=== PATIENT | male | born 1960 | race Caucasian/White ===

== ENCOUNTER → 2017-08-21 | Outpatient (CLI) | payer SELFPAY ==
[~2017-08-21] MED LIST: AMLO5 PO; ASPI81CH PO; ATEN25 PO; Aciphex20 MG PO; Imitrex100 MG PO; LISI20; Norco 5-325 Ta1 EACH PO; TOPI50 PO
[2017-08-21 14:08] LABS: BASOPHILS ABSOLUTE AUTO 0.06 K/mm3 (0.00-0.23); BASOPHILS PERCENT AUTO 1 % (0-2); EOSINOPHILS ABSOLUTE AUTO 0.33 K/mm3 (0.00-0.68); EOSINOPHILS PERCENT AUTO 3 % (0-6); Hematocrit 41.9 % (37.0-53.0); Hemoglobin 14.2 g/dL (13.5-17.5); IMMATURE GRAN ABSOLUTE AUTO 0.03 K/mm3 (0.00-0.10); IMMATURE GRAN PERCENT AUTO 0 % (0-1); LYMPHOCYTES ABSOLUTE AUTO 3.27 K/mm3 (0.84-5.20); LYMPHOCYTES PERCENT AUTO 33 % (21-46); MONOCYTES ABSOLUTE AUTO 0.68 K/mm3 (0.16-1.47); MONOCYTES PERCENT AUTO 7 % (4-13); Mean Corpuscular HGB 31.6 pg (26.0-34.0); Mean Corpuscular HGB Conc 33.9 g/dL (31.5-36.5); Mean Corpuscular Volume 93 fL (80-100); Mean Platelet Volume 12.3 fL (9.1-12.4); NEUTROPHILS ABSOLUTE AUTO 5.64 K/mm3 (1.96-9.15); NEUTROPHILS PERCENT AUTO 56 % (41-73); Platelet Count 222 K/mm3 (150-400); RDW Coefficient Variation 13.2 % (11.7-14.2); RDW Standard Deviation 45.9 fL (35.1-46.3); White Blood Cell Count 10.01 K/mm3 (4.00-11.30)
[2017-08-21 14:23] LABS: Alanine Aminotransfer (ALT/SGP 51 U/L (12-78); Albumin, Blood 3.9 g/dL (3.4-5.0); Alk Phos 115 U/L (40-126); Anion Gap 12 mmol/L (6-16); Aspartate Aminotrans (AST/SGOT 34 U/L (12-37); Bilirubin, Total 0.9 mg/dL (0.1-1.0); Blood Urea Nitrogen 16 mg/dL (8-24); CO2, Blood 25 mmol/L (21-32); Calcium, Blood 8.9 mg/dL (8.5-10.1); Chloride, Blood 103 mmol/L (98-108); Creatinine, Blood 0.89 mg/dL (0.60-1.20); Globulin, Blood 3.8 g/dL (2.2-4.0); Glomerular Filtration Rate >60 (60-); Glucose, Blood 117 mg/dL (70-99); Potassium, Blood 3.5 mmol/L (3.5-5.5); Sodium, Blood 140 mmol/L (136-145); Total Protein, Blood 7.7 g/dL (6.4-8.2); Troponin I <0.017 ng/mL (0.000-0.040)
== END ==
LOC: LAB EV 14:00 → LAB SHORT 14:00
PROVIDERS: Physician Assistant
DX: R07.9 Chest pain, unspecified (principal)
CPT/HCPCS: 80053; 83690; 84484; 85025

== ENCOUNTER 2018-01-06 15:21 | Emergency (ER) | payer OTHER ==
[~2018-01-06] VITALS: Ht 172.7 cm; Wt 79.4 kg
[~2018-01-06 15:21] MED LIST changes: -LISI20; +LISI20 PO
[2018-01-06] MEDS ORDERED: METO25ER PO (15:34)
[2018-01-06] MEDS ORDERED: Multivitamin1 EAC2 PO (15:35)
[2018-01-06] MEDS ORDERED: VITAMIN D32000 UNIT PO (15:36)
== END 2018-01-06 17:22 | disposition home or self-care (01) ==
LOC: ER 15:21
DX: S40.852A Superficial foreign body of left upper arm, initial encounter (principal); I10 Essential (primary) hypertension; K21.9 Gastro-esophageal reflux disease without esophagitis; F17.210 Nicotine dependence, cigarettes, uncomplicated; Z79.899 Other long term (current) drug therapy; Z79.82 Long term (current) use of aspirin
CPT/HCPCS: 76882; 99283-25

== ENCOUNTER 2018-05-01 07:14 | Day surgery (SDC) | payer OTHER ==
[~2018-05-01] VITALS: Ht 172.7 cm; Wt 83.3 kg
[~2018-05-01 07:14] MED LIST changes: +ASCO500; +Aspirin EC81 MG PO; +LOPE2C PO; +METO25ER PO; +Multivitamin1 EAC2 PO; +VARE1 PO; +VITAMIN D32000 UNIT PO; +ZESTRIL40 MG PO
== END 2018-05-01 09:32 | disposition home or self-care (01) ==
LOC: ORSCSDS 07:14
PROVIDERS: Internal Medicine Gastroenterology
PROC: 0DBE8ZX Excision of Large Intestine, Via Natural or Artificial Opening Endoscopic, Diagnostic (ICD-10-PCS; principal; 2018-05-01 08:30)
PROC: 0DB68ZX Excision of Stomach, Via Natural or Artificial Opening Endoscopic, Diagnostic (ICD-10-PCS; principal; 2018-05-01 08:30)
PROC: 0DBB8ZX Excision of Ileum, Via Natural or Artificial Opening Endoscopic, Diagnostic (ICD-10-PCS; principal; 2018-05-01 08:30)
PROC: 0DBL8ZX Excision of Transverse Colon, Via Natural or Artificial Opening Endoscopic, Diagnostic (ICD-10-PCS; principal; 2018-05-01 08:30)
PROC: 0DB98ZX Excision of Duodenum, Via Natural or Artificial Opening Endoscopic, Diagnostic (ICD-10-PCS; principal; 2018-05-01 08:30)
DX: K21.0 Gastro-esophageal reflux disease with esophagitis (principal); R13.10 Dysphagia, unspecified; D12.3 Benign neoplasm of transverse colon; K64.1 Second degree hemorrhoids; K57.30 Diverticulosis of large intestine without perforation or abscess without bleeding; R19.7 Diarrhea, unspecified; Z86.010 Personal history of colon polyps; I10 Essential (primary) hypertension; F17.210 Nicotine dependence, cigarettes, uncomplicated; Z79.82 Long term (current) use of aspirin; Z79.899 Other long term (current) drug therapy
CPT/HCPCS: 88305; 88342; J0330; J1980; J2405; J7120

== ENCOUNTER 2019-08-27 12:25 | Emergency (ER) | payer OTHER ==
[~2019-08-27] VITALS: Ht 172.7 cm; Wt 90.7 kg
[2019-08-27 13:26] LABS: BASOPHILS PERCENT AUTO 1 % (0-2); EOSINOPHILS ABSOLUTE AUTO 0.33 K/mm3 (0.00-0.68); EOSINOPHILS PERCENT AUTO 3 % (0-6); Hematocrit 44.4 % (37.0-53.0); Hemoglobin 14.6 g/dL (13.5-17.5); IMMATURE GRAN ABSOLUTE AUTO 0.13 K/mm3 (0.00-0.10); IMMATURE GRAN PERCENT AUTO 1 % (0-1); LYMPHOCYTES PERCENT AUTO 26 % (21-46); MONOCYTES ABSOLUTE AUTO 0.78 K/mm3 (0.16-1.47); MONOCYTES PERCENT AUTO 7 % (4-13); Mean Corpuscular HGB 30.4 pg (26.0-34.0); Mean Corpuscular HGB Conc 32.9 g/dL (31.5-36.5); Mean Corpuscular Volume 92 fL (80-100); Mean Platelet Volume 12.7 fL (9.1-12.4); NEUTROPHILS ABSOLUTE AUTO 6.63 K/mm3 (1.96-9.15); NEUTROPHILS PERCENT AUTO 62 % (41-73); Platelet Count 199 K/mm3 (150-400); RDW Coefficient Variation 13.7 % (11.7-14.2); RDW Standard Deviation 47.2 fL (35.1-46.3); Red Blood Cell Count 4.81 M/mm3 (4.30-5.90); White Blood Cell Count 10.77 K/mm3 (4.00-11.30)
[2019-08-27] MEDS ORDERED: METF500 PO (13:43)
[2019-08-27] MEDS ORDERED: DULO60 PO (13:43)
[2019-08-27] MEDS ORDERED: OMEP20ER PO (13:43)
[2019-08-27] MEDS ORDERED: BENZ100A PO (13:44)
[2019-08-27] MEDS ORDERED: Crestor20 MG PO (13:44)
[2019-08-27] MEDS ORDERED: TIZA4 PO (13:44)
[2019-08-27] MEDS ORDERED: FLUT.05NI (13:45)
[2019-08-27 13:52] LABS: Alanine Aminotransfer (ALT/SGP 33 U/L (12-78); Albumin, Blood 3.6 g/dL (3.4-5.0); Albumin/Globulin Ratio 0.9 (0.8-1.8); Alk Phos 108 U/L (50-136); Anion Gap 7 mmol/L (6-16); Aspartate Aminotrans (AST/SGOT 21 U/L (12-37); Bilirubin, Total 0.6 mg/dL (0.1-1.0); Blood Urea Nitrogen 13 mg/dL (8-24); Bun/Creatinine Ratio 15.1 (12.0-20.0); CO2, Blood 25 mmol/L (21-32); Calcium, Blood 8.3 mg/dL (8.5-10.1); Chloride, Blood 110 mmol/L (98-108); Creatinine, Blood 0.86 mg/dL (0.60-1.20); Globulin, Blood 3.8 g/dL (2.2-4.0); Glomerular Filtration Rate >60 (60-); Glucose, Blood 117 mg/dL (70-99); Potassium, Blood 4.3 mmol/L (3.5-5.5); Sodium, Blood 142 mmol/L (136-145); Total Protein, Blood 7.4 g/dL (6.4-8.2)
[2019-08-27] MEDS ORDERED: ALBU90OI INH (15:07)
== END 2019-08-27 15:17 | disposition home or self-care (01) ==
LOC: ER 12:25
PROVIDERS: Nurse Practitioner
DX: R55 Syncope and collapse (principal); J98.01 Acute bronchospasm; I10 Essential (primary) hypertension; E11.9 Type 2 diabetes mellitus without complications; K21.9 Gastro-esophageal reflux disease without esophagitis; E78.00 Pure hypercholesterolemia, unspecified; Z79.899 Other long term (current) drug therapy; Z79.84 Long term (current) use of oral hypoglycemic drugs; Z79.82 Long term (current) use of aspirin; F17.210 Nicotine dependence, cigarettes, uncomplicated
CPT/HCPCS: 36415; 70450; 71046; 80053; 83880; 85025; 86140; 93005; 93010; 99284-25

== ENCOUNTER → 2022-11-21 | Outpatient (CLI) | payer MEDICARE, OTHER ==
[~2022-11-21] MED LIST changes: +ALBU90OI INH; +BENZ100A PO; +Crestor20 MG PO; +DULO60 PO; +FLUT.05NI; +METF500 PO; +OMEP20ER PO; +TIZA4 PO
== END | disposition home or self-care (01) ==
LOC: LAB 13:18 → LAB SHORT 13:18 → PLD 13:18
DX: L82.1 Other seborrheic keratosis (principal); D22.9 Melanocytic nevi, unspecified
CPT/HCPCS: 88305

== ENCOUNTER 2023-06-08 07:37 | Day surgery (SDC) | payer MEDICARE ==
[~2023-06-08] VITALS: Ht 172.7 cm; Wt 79.6 kg
[2023-06-08] VITALS (11 sets, daily range): BP systolic 139–161; BP diastolic 73–88
[~2023-06-08 07:37] MED LIST changes: -ASCO500; +ASCO500 PO; +FLUT1DIS5 INH; +IBUP800 PO; +INCRUSE ELLIPTA INH; +Lactated Ringer's 1,000 ML IV SCH; +POTCHL20ER; +PRAZ1 PO; +Prozac40 MG PO; +RIZATRIPTAN10 MG SL; +SPRITAM500 MG PO
[2023-06-08] MEDS ORDERED: Lidocaine HCl 2% 20 ML MDV ONE (08:57)
[2023-06-08] MEDS ORDERED: propofoL 20 ML IV ONE (08:57)
[2023-06-08] MEDS ORDERED: Rocuronium Bromide 10 MG/ML 5ML Injection IV ONE ×2 (08:58→10:09)
[2023-06-08] MEDS ORDERED: FentaNYL Citrate 50 MCG/ML 2 ML Injection ONE ×3 (08:59→10:24)
[2023-06-08] MEDS ORDERED: Lidocaine HCl 2% Jelly 120MG/6ML SYR (20MG PER ML) ONE (09:00)
[2023-06-08] MEDS ORDERED: Bupivacaine 0.5% HCl 5 MG/ML 30MLVIAL ONE (09:08)
[2023-06-08] MEDS ORDERED: Ipratropium/Albuterol SulF 2.5-0.5MG/3 ML Amp INH ONE (09:15)
[2023-06-08] MEDS ORDERED: Midazolam HCl 1MG / ML 2ML Vial IV SCH (09:15)
[2023-06-08] MEDS ORDERED: Ipratropium/Albuterol SulF 2.5-0.5MG/3 ML Amp ONE (09:18)
[2023-06-08] MEDS ORDERED: Midazolam HCl 1MG / ML 2ML Vial ONE (09:21)
[2023-06-08] MEDS ORDERED: Ondansetron HCl 2 MG / ML 2ML Vial IV PRN (09:30)
[2023-06-08] MEDS ORDERED: HYDROmorphone HCl/Pf 1MG SYR IV PRN (09:30)
[2023-06-08] MEDS ORDERED: FentaNYL Citrate 50 MCG/ML 2 ML Injection IV PRN ×2 (09:30→09:35)
--- NOTE | 2023-06-08 09:35 | NUR ---
06/08/23 0935 Earlene Marshall PT TO OR [address] BARTLETT'S ANESTHESIA RECORD.
[2023-06-08] MEDS ORDERED: Labetalol HCL 5 MG/ML 4ML Injection (Single Dose) ONE (09:39)
[2023-06-08] MEDS ORDERED: Phenylephrine HCl 100 MCG/ML-NS 10MLSYR (1MG/10ML) ONE (10:02)
[2023-06-08] MEDS ORDERED: Sugammadex Sodium 200 MG/2ML SDV (100 MG/ML) ONE (10:28)
[2023-06-08] MEDS ORDERED: OxyCODONE 5 mg/Acetamin 325 mg TABLET PO PRN (10:55)
--- NOTE | 2023-06-08 11:29 | NUR ---
REPORT RECEIVED FROM DARION ROBBINS. VSS. PT ON RA. PT ALERT AND ORIENTED. PT ABLE TO REPOSITION SELF IN BED. PT ABLE TO AMBULATE TO BR INDEPENDENTLY AND VOID. PT REQUESTING PO FOOD AND FLUIDS AND TOLERATING THEM WELL. PT DENIES PAIN, NAUSEA OR OTHER DISCOMFORTS AT THIS TIME. PT HAS GAUZE PACKING TO BUTTOCKS AND MESH UNDERWEAR. GAUZE HAS MINIMAL DRAINAGE NOTED. OTHERWISE DRESSING IS INTACT AND HAS NO SWELLING OR REDNESS UNDERNEATH GAUZE.
--- NOTE | 2023-06-08 11:55 | NUR ---
Patient up to Ambulate independently. Gait steady. VSS AND CONSISTENT WITH PT BASELINE. PT HAS NO COMPLAINTS AND VERBALIZES READINESS TO GO HOME. Discharge instructions reviewed with patient. Patient verbalizes understanding. Copy given to patient to take home. GAUZE to procedure site HAS MINIMAL BLOOD DRAINAGE NOTED. UNDERNEATH GAUZE STILL LOOKS intact with no visible drainage, swelling, erythema or bruising noted. Patient States Post-Procedure ride home has been arranged. Discharged via wheelchair to private car for ride home. PT BELONGINGS RETURNED TO PT.
== END 2023-06-08 11:59 | disposition home or self-care (01) ==
LOC: ORSCMMR 07:37 → ORD 09:00 → ORSCMMR 09:00
PROVIDERS: Surgery
PROC: 06BY0ZC Excision of Hemorrhoidal Plexus, Open Approach (ICD-10-PCS; principal; 2023-06-08 09:00)
PROC: 0DJD8ZZ Inspection of Lower Intestinal Tract, Via Natural or Artificial Opening Endoscopic (ICD-10-PCS; principal; 2023-06-08 09:00)
DX: K62.5 Hemorrhage of anus and rectum (principal); K64.2 Third degree hemorrhoids; K64.4 Residual hemorrhoidal skin tags; K57.30 Diverticulosis of large intestine without perforation or abscess without bleeding; J44.9 Chronic obstructive pulmonary disease, unspecified; F17.210 Nicotine dependence, cigarettes, uncomplicated; K21.9 Gastro-esophageal reflux disease without esophagitis; E11.9 Type 2 diabetes mellitus without complications; F32.9 Major depressive disorder, single episode, unspecified; G40.909 Epilepsy, unspecified, not intractable, without status epilepticus; Z79.899 Other long term (current) drug therapy
CPT/HCPCS: 82947; 88304; 93005; 93010; A9270; J2250; J2371; J2704; J3010; J7120